=== PATIENT | male | born 1955 | race Caucasian/White ===

== ENCOUNTER 2016-11-30 10:37 | Emergency (ER) | payer OTHER ==
[~2016-11-30] VITALS: Ht 172.7 cm; Wt 104.3 kg
--- NOTE | 2016-11-30 10:37 | NUR ---
ER at bedside examining patient.
--- NOTE | 2016-11-30 10:37 | NUR ---
Patient to ER bed 05 to gown for evaluation. Side rails up. Report given to Andra.
--- NOTE | 2016-11-30 10:41 | NUR ---
PT STATES H/O GOUT AND THIS IS THE WORST HE HAS EVER HAD. PT STATES PAIN TO LEFT 1ST AND 5TH TOES, BILATERAL KNEES AND WRISTS.
[2016-11-30] MEDS ORDERED: HYDROcodone/ACETAMIN 10-325 MG TAB PO ONE (10:45)
[2016-11-30] MEDS ORDERED: KETOROLAC TROMETHAMINE 60 MG/2 ML VIAL IM ONE (10:45)
[2016-11-30 10:48] VITALS: BP_SYST 155
--- NOTE | 2016-11-30 10:59 | NUR ---
XRAYS BEING DONE AT BEDSIDE. AT BEDSIDE GIVING SUPPORT
[2016-11-30 11:15] LABS: BASOPHILS % (AUTO) 0.4 % (0.0-2.0); EOSINOPHILS % (AUTO) 0.4 % (0.0-4.0); HEMATOCRIT 40.3 % (36-54); HEMOGLOBIN 13.4 g/dL (14.0-18.0); LYMPHOCYTES # (AUTO) 0.6 K/uL (1.0-5.5); LYMPHOCYTES % (AUTO) 4.7 % (20.5-51.5); MEAN CORPUSCULAR HEMOGLOBIN 31 pg (27-31); MEAN CORPUSCULAR HGB CONC 33 % (32-36); MEAN CORPUSCULAR VOLUME 92 fL (79.0-98.0); MONOCYTES # (AUTO) 0.7 K/uL (0.0-1.0); MONOCYTES % (AUTO) 5.5 % (1.7-9.3); NEUTROPHILS # (AUTO) 10.6 K/uL (1.8-7.7); PLATELET COUNT (AUTO) 363 K/uL (130-430); RED BLOOD CELL COUNT(AUTO) 4.38 MIL/uL (4.2-6.2); RED CELL DISTRIBUTION WIDTH 12.9 % (9.0-15.0); WHITE BLOOD COUNT (AUTO) 11.9 K/uL (4.8-10.8)
[2016-11-30 11:17] LABS: CALCIUM 10.1 mg/dL (8.4-11.0); CREATININE 1.06 mg/dL (0.55-1.30); POTASSIUM 4.2 mmol/L (3.5-5.1)
[2016-11-30 11:21] LABS: TOTAL BILIRUBIN 0.7 mg/dL (0.0-1.0); TOTAL PROTEIN, SERUM 9.2 g/dL (6.4-8.3); URIC ACID 5.4 mg/dL (2.4-7.0)
[2016-11-30 11:31] LABS: ALBUMIN 4.1 g/dL (3.4-4.8)
--- NOTE | 2016-11-30 11:50 | NUR ---
PT ATTEMPTING TO WALK, PT ONLY ABLE TO PUT MINIMAL AMT OF PRESSURE TO FEET. UNABLE TO GET FROM BED TO WHEELCHAIR. CHARGE NURSE AWARE. CONCERNED ABOUT HOW TO CARE FOR PT ONCE HE'S HOME. INQUIRING ABOUT AN AMBULANCE
--- NOTE | 2016-11-30 12:11 | NUR ---
Patient given written and verbal discharge instructions and verbalizes understanding. ER MD discussed with patient the results and treatment provided. Given copies of tests performed in ER. Patient in stable condition. ID arm band removed. Rx of MOTRIN, NORCO, AND ALLOPURINOL given. Patient educated on pain management and to follow up with PMD. Pain Scale 2/10. Opportunity for questions provided and answered.
== END 2016-11-30 12:11 | disposition home or self-care (01) ==
LOC: SED 10:37
DX: M10.9 Gout, unspecified (principal)
CPT/HCPCS: 36415; 73560; 80053; 84550; 85025; 96372; 99285; J1885